=== PATIENT | female | born 1975 | race Two or more races ===

== ENCOUNTER 2024-02-01 11:11 | Inpatient (IN) | payer OTHER ==
[~2024-02-01] VITALS: Ht 157.5 cm; Wt 111.1 kg
[2024-02-01] MEDS ORDERED: DEPAKOTE ER500 MG PO (11:38)
[2024-02-01] MEDS ORDERED: VISTARIL25 MG PO (11:38)
[2024-02-01] MEDS ORDERED: RISPERDAL0.5 MG PO (11:39)
--- NOTE | 2024-02-01 11:39 | NUR ---
PTE ALERTA Y ORIENTADA X3 QUIEN REFIERE DESDE HACE 2 SEMANAS PRESENTAR SANGR[place]O Y PROBLEMAS MENSTRUALES MISM INDICA QUE VA Y VIENE NO SER REGUALR.
[2024-02-01] MEDS ORDERED: DEXAMETHASONE SODIUM PHOSPHATE 4 MG/ML VIAL IM STA (11:50)
[2024-02-01 12:29] LABS: URINE APPEARANCE Turbid; URINE BILIRRUBIN Small (NEGATIVE); URINE BLOOD Large; URINE COLOR Red; URINE GLUCOSE Negative (NEGATIVE); URINE LEUKOCYTE Small; URINE NITRATE Negative; URINE UROBILINOGEN 0.2 E.U./dl
[2024-02-01 12:30] LABS: HEMATOCRIT 27.3 % (36.0-45.00); MEAN CORPUSCULAR HGB CONC 32.1 g/dl (32.0-36.0); PLATELET COUNT 367 K/uL (150-450); RED BLOOD COUNT 3.95 M/uL (4.00-6.00); RED CELL DISTRIBUTION WIDTH 19.9 % (11.5-14.5)
[2024-02-01 12:31] LABS: HEMOGLOBIN 8.8 g/dL (12.0-15.00); MEAN CELL VOLUME 69.3 fL (80.00-100.00); MEAN CORPUSCULAR HEMOGLOBIN 22.2 pg (27.00-32.0)
[2024-02-01 12:33] LABS: URINE BACTERIA 336.4 uL (0.0-1933); URINE EPITHELIAL CELLS 12.6 uL (0.0-38.8); URINE WBC 21.4 uL (0.0-23.2)
[2024-02-01 12:42] LABS: ALBUMIN 3.3 gm/dL (3.4-5.0); BILIRUBIN TOTAL 0.3 mg/dL (0.3-1.2); CREATININE SERUM 0.73 mg/dL (0.55-1.02); GFR 84.39; GLOBULINA 4.6 G/DL (2.4-3.5); POTASSIUM 4.17 mEq/L (3.5-5.1); TOTAL PROTEIN 7.9 gm/dL (6.4-8.2)
[2024-02-01 12:49] LABS: URINE PROTEIN 100 (NEGATIVE); URINE RBC > 10558.9 uL (0.0-20.8)
[2024-02-01 12:57] LABS: INR 1.07; PARTIAL THROMBOPLASTIN TIME 25.4 SECONDS (22.0-34.0); PROTHROMBIN TIME 11.2 SECONDS (9.0-11.5)
--- NOTE | 2024-02-01 13:04 | NUR ---
PTE ALERTA Y ORIENTADA X3. SE REALIZAN MUESTRAS DE LAB SHANTELL ORDEN MEDICA Y BAJO MEDIDAS ASEPTICAS. SE ADMNISTRA MEDICAMENTO SHANTELL ORDEN MEDICA, NO SE OBSERVA REACCION ADVERSA AL MOMENTO.
--- NOTE | 2024-02-01 17:00 | NUR ---
PTE CON ORDEN DE TRANSFUNDIR 2 UNIDADES DE PRBC. SE ENTREGA A PTE CONSENTIMIENTO DE TRANSFUSION Y LA MISMA LO FIRMA. SE REQUISAN DOS UNIDADES DE PRBC. REQUISICION SE LLEVA A LABORATORIO Y SE ENTREGA A MS WAY A LAS 1654. PERSONAL DE LABORATORIO REALIZA LLAMADA A [place] LOS CUALES INDICAN QUE PTE TIENE RECORD PREVIO.
[2024-02-01] MEDS ORDERED: ESTROGENS, CONJUGATED 25 MG in DEXTROSE 5 % IN WATER 50 ML IV SCH (17:48)
[2024-02-03 00:17] LABS: HEMATOCRIT 29.4 % (36.0-45.00); HEMOGLOBIN 9.4 g/dL (12.0-15.00); MEAN CELL VOLUME 72.6 fL (80.00-100.00); MEAN CORPUSCULAR HEMOGLOBIN 23.3 pg (27.00-32.0); MEAN CORPUSCULAR HGB CONC 32.1 g/dl (32.0-36.0); PLATELET COUNT 335 K/uL (150-450); RED BLOOD COUNT 4.06 M/uL (4.00-6.00); RED CELL DISTRIBUTION WIDTH 20.3 % (11.5-14.5)
[2024-02-03] MEDS ORDERED: MAXFE CAPLET1 EAC1 PO (08:54)
[2024-02-03] MEDS ORDERED: MEDROXYPROGESTE10 MG PO (08:54)
== END 2024-02-03 10:16 | disposition home or self-care (01) | DRG 761 ==
LOC: ER 11:11 → SEC-K 17:58 → OB/GYN 17:58
PROVIDERS: General Practice; ADMIT Obstetrics & Gynecology; ATTEND Obstetrics & Gynecology
PROC: BU4CZZZ Ultrasonography of Uterus and Ovaries (ICD-10-PCS; principal; 2024-02-01)
PROC: 30233N1 Transfusion of Nonautologous Red Blood Cells into Peripheral Vein, Percutaneous Approach (ICD-10-PCS; 2024-02-02)
DX: N93.9 Abnormal uterine and vaginal bleeding, unspecified (principal); Z20.822 Contact with and (suspected) exposure to COVID-19; D64.9 Anemia, unspecified